=== PATIENT | female | born 1940 | race Caucasian/White ===

== ENCOUNTER 2017-03-15 07:15 | Inpatient (IN) | payer OTHER ==
--- NOTE | 2017-03-13 10:08 | GHP ---
[f rep st] PREOP HISTORY AND PHYSICAL DATE OF ADMISSION: 03/15/2017 ADMISSION DIAGNOSIS: Severe right hip degenerative arthritis. HISTORY OF PRESENT ILLNESS: The patient is a 76-year-old female who will be admitted for a right to simone hip arthroplasty. She underwent a left total hip arthroplasty [address] Steele[address] Lj r the past 4 years, she has had progressive pain of the right hip. In the past 6-9 months, things h ave gotten even worse. She has daily pain, as well as difficulties putting on shoes and socks. Act ivity makes her pain worse. She is using Celebrex with minimal improvement. Because of her progres sive pain, advanced arthritis, and recalcitrant response to conservative therapies, the patient has elected to proceed with a right total hip arthroplasty. PAST MEDICAL HISTORY: Pertinent for hypercholesterolemia, seasonal allergies. No history of hepati tis, DVT, PE, AL, or MRSA infections. CURRENT MEDICATIONS: Azelastine 0.15% nasal spray, Celebrex 200 mg daily, simvastatin 20 mg, and zo lpidem 10 mg. She also takes CoQ10, calcium, fish oil, glucosamine, and multivitamin. ALLERGIES: She has no known drug allergies. SOCIAL HISTORY: The patient is . She is retired. FAMILY HISTORY: Pertinent for coronary artery disease. PHYSICAL EXAMINATION: GENERAL: She is a healthy-appearing 76-year-old female. VITALS: Height 5 feet 4 inches tall, weight 129 pounds, BMI 22.1. HEENT: Head is normocephalic, a traumatic. Eyes are PERRLA. Conjunctivae and sclerae are clear. Mouth: She has good oral hygiene , without any loose teeth. LUNGS: Clear. HEART: Regular rate and rhythm, without murmurs, gallop s, or rubs. EXTREMITIES: Pertinent findings are limited to the patient's right hip. She has full hip extension, 110 degrees of flexion, 30 degrees of external rotation, 0 degrees of internal rotati on, and 20 degrees of abduction. DIAGNOSTIC IMAGING: Recent x-rays taken of the patient's right hip shows advanced degenerative arth ritis with [id number] findings. She has peripheral osteophyte formation and increased subchondral sclerosis. IMPRESSION: On admission: 1. Severe right hip degenerative arthritis. 2. History of left total hip arthroplasty with a good result. 3. Treated hypercholesterolemia. PLAN: The plan will be for the patient to undergo a right total hip arthroplasty with Dr. Steele at the [facility] on March 15, 2017. The patient has failed conservative treatment with activity modification, anti-inflammatory medications, and physical therapy. The surgery has been d escribed to the patient, including the risks, complications, expectations, and recovery time. She u nderstands the risk of dislocation, leg length inequality, infection, sciatic nerve injury, and the possibility of future need for future revision surgery. All her questions have been answered, and s he consents to surgery here in the office today. /[id number]/MODL
[~2017-03-15 07:15] MED LIST: POVIDONE-IODINE 20 ML in SODIUM CL IRRIG SOLUTION 500 ML IRR ONE; ROPIVACAINE 0.2% 80 MG, EPINEPHrine 0.2 MG, KETOROLAC TROMETHAMINE 30 MG in BAG 0 ML IU ONE; TRANEXAMIC ACID 1,180 MG in NS 100 ML IV ONE
[2017-03-15] MEDS ORDERED: ceFAZolin 1 GM/5 ML SYR ONE (09:21)
--- NOTE | 2017-03-15 10:06 | PDANEPAE ---
ANE History of Present Illness R AMADO ANE Past Medical History Past Medical History: hypercholesterolemia - Cardiovascular History Hx Hypertension: No Hx Arrhythmias: No Hx Chest Pain: No Hx Coronary Artery / Peripheral Vascular Disease: No Hx CHF / Valvular Disease: No Hx Palpitations: No - Pulmonary History Hx COPD: No Hx Asthma/Reactive Airway Disease: No Hx Recent Upper Respiratory Infection: No Hx Oxygen in Use at Home: No Hx Sleep Apnea: No - Neurologic History Hx Cerebrovascular Accident: No Hx Seizures: No Hx Dementia: No - Endocrine History Hx Diabetes: No - Renal History Hx Renal Disorders: No - Liver History Hx Hepatic Disorders: No - Neurological & Psychiatric Hx Hx Neurological and Psychiatric Disorders: No - Cancer History Hx Cancer: No - Congenital Disorder History Hx Congenital Disorders: No - GI History Hx Gastrointestinal Disorders: No - Other Health History Other Health History: wears glasses - Chronic Pain History Chronic Pain: Yes (arthritis to neck and shoulders) - Surgical History Prior Surgeries: c-sections x2 1958 and 1970. laminectomy for ruptured disc 1993. 2011 sinus surgery for chronic inflammation. 2013 left amado with [place] ANE Review of Systems - Exercise capacity METS (RN): 4 METS ANE Patient History - Allergies Allergies/Adverse Reactions: No Known Allergies Allergy (Verified 02/10/17 15:24) - Home Medications Home Medications: Fluticasone Nasal [Flonase Nasal [place] (RX)] 1 sprays NASAL DAILY PRN 12/21/12 [ Last Taken 01/15/13 22:00] Zolpidem Tartrate [Ambien 10 mg] 3 mg PO HS PRN 12/21/12 [Last Taken 01/07/13] celeCOXIB [Celebrex (RX)] 200 mg PO DAILY PRN 12/21/12 [Last Taken 01/14/13] Simvastatin [Zocor 20 mg (RX)] 30 mg PO HS 12/26/12 [Last Taken 01/15/13 21:30] Acetaminophen [Tylenol 325mg (*)] 325 mg PO DAILY PRN 02/07/17 [Last Taken Unknown] C/E/Zn/Cu/OM3/DHA/EPA/LUT/ZEAX [Preservision Areds 2 Softgel] 1 each PO BID [Last Taken Unknown] Herbals/Supplements -Info Only 1 ea PO DAILY 02/07/17 [Last Taken Unknown] Multivitamins [Multivitamin (*)] 1 each PO DAILY 02/07/17 [Last Taken Unknown] - NPO status NPO Since - Liquids (Date): 03/15/17 NPO Since - Liquids (Time): 07:30 - Anes Hx Anes Hx: no prior problems - Smoking Hx Smoking Status: Former smoker - Family Anes Hx Family Anes Hx: none Family Hx Anesthesia Complications: mother- had back surgery at 91 yo- took her months to snap out of it and really wasn't the same afterward ANE Labs/Vital Signs - Vital Signs Height: 162.56 cm Weight: 58.967 kg ANE Physical Exam - Airway Neck exam: FROM Mallampati Score: Class 1 Mouth exam: normal dental/mouth exam - Pulmonary Pulmonary: no respiratory distress - Cardiovascular Cardiovascular: regular rate and rhythym - ASA Status ASA Status: II ANE Anesthesia Plan Anesthesia Plan: MAC, spinal
[2017-03-15] MEDS ORDERED: PROPOFOL/EMULSION 500 MG/50 ML BOTTLE IV ONE (10:29)
[2017-03-15] MEDS ORDERED: LIDOCAINE 2% 5 ML SDV ONE (10:29)
--- NOTE | 2017-03-15 10:41 | PDHPUP ---
History & Physical Update H&P update statement: This history and physical update is based on an assessment of the patient which was completed after admission or registration (within 24 hours), but prior to the surgery/procedure. H&P update: H&P reviewed & patient examined, no change in patient's condition since H&P completed
[2017-03-15] MEDS ORDERED: LIDOCAINE 1% 2 ML INJ ONE (10:45)
[2017-03-15] MEDS ORDERED: DEXAMETHASONE 4 MG/ML VIAL IVP ONE (11:00)
[2017-03-15] MEDS ORDERED: FAMOTIDINE 20 MG TAB PO ONE (11:00)
[2017-03-15] MEDS ORDERED: ceFAZolin 2 GM/DEXTROSE 100 ML IV ONE (11:00)
[2017-03-15] MEDS ORDERED: ACETAMINOPHEN 325 MG TAB PO ONE (11:00)
[2017-03-15] MEDS ORDERED: MIDAZOLAM 2 MG/2 ML VIAL IVP ONE (11:02)
[2017-03-15] MEDS ORDERED: LIDOCAINE 1% 2 ML INJ ID PRN (11:11)
[2017-03-15] MEDS ORDERED: LR 1,000 ML IV ONE (11:11)
[2017-03-15] MEDS ORDERED: PHENYLEPHRINE HCL 100 MCG/ML SYR ONE (12:06)
--- NOTE | 2017-03-15 12:10 | POSTANESTH ---
Post Anesthetic Evaluation Cardiovascular Status: Normal, Stable, Similar to Pre-Op Cond Respiratory Status: Normal, Stable, Similar to Pre-op Cond. Level of Consciousness/Mental Status: Can Participate in Eval, Mildly Sleepy, Arousable Pain Control: Adequate, Prn Tx Ordered Nausea/Vomiting Control: Adequate, Prn Tx Ordered Complications Possibly Related to Anesthesia: None Noted
[2017-03-15] MEDS ORDERED: fentaNYL 100 MCG/2 ML INJ ONE (12:33)
--- NOTE | 2017-03-15 13:04 | POSTOPPROG ---
Post Op Note Date of Operation: 03/15/17 Surgeon: Shiv Steele Ball Thread Machine Tender: Kaur Anesthesiologist: Jael Anesthesia: IV Sedation, Spinal Post-op Diagnosis: R hip arthritis Procedure: R AMADO Inf/Abcess present in the surg proc area at time of surgery?: No EBL: [id number]
[2017-03-15] MEDS ORDERED: FLUTICASONE NASAL 120 SPRAYS/16 GM MDI EACHNARE PRN (13:09)
[2017-03-15] MEDS ORDERED: ZOLPIDEM TARTRATE PO PRN (13:09)
[2017-03-15] MEDS ORDERED: KETOROLAC 30 MG/1 ML SDV IVP PRN (13:10)
[2017-03-15] MEDS ORDERED: POLYETHYLENE GLYCOL 3350 17 GM PKT PO PRN (13:10)
[2017-03-15] MEDS ORDERED: PROMETHAZINE HCL 25 MG SUPPR PR PRN (13:10)
[2017-03-15] MEDS ORDERED: ONDANSETRON DISINTEGRATING 4 MG TAB PO PRN (13:10)
[2017-03-15] MEDS ORDERED: NS 500 ML IV PRN (13:10)
[2017-03-15] MEDS ORDERED: oxyCODONE IR 5 MG TAB PO PRN (13:10)
[2017-03-15] MEDS ORDERED: METOCLOPRAMIDE 10 MG/2 ML VIAL IVP PRN (13:10)
[2017-03-15] MEDS ORDERED: diphenhydrAMINE 25 MG CAP PO PRN (13:10)
[2017-03-15] MEDS ORDERED: LACTULOSE 20 GM/30 ML UDCUP PO PRN (13:10)
[2017-03-15] MEDS ORDERED: CYCLOBENZAPRINE 10 MG TAB PO PRN (13:10)
[2017-03-15] MEDS ORDERED: ONDANSETRON 4 MG/2 ML VIAL IVP PRN ×2 (13:10→13:20)
[2017-03-15] MEDS ORDERED: traMADol 50 MG TAB PO PRN (13:10)
[2017-03-15] MEDS ORDERED: PROMETHAZINE HCL 25 MG/ML INJ IVP PRN ×2 (13:10→13:20)
[2017-03-15] MEDS ORDERED: BISACODYL 10 MG SUPP PR PRN (13:10)
[2017-03-15] MEDS ORDERED: PHARMACY PAIN CONSULT 1 EA MISC PRN (13:10)
[2017-03-15] MEDS ORDERED: DIPHENOXYLATE/ATROPINE LOMOTIL 1 TAB PO PRN (13:10)
[2017-03-15] MEDS ORDERED: MAGNESIUM HYDROXIDE 30 ML UDCUP PO PRN (13:10)
[2017-03-15] MEDS ORDERED: fentaNYL 100 MCG/2 ML INJ IVP PRN (13:20)
[2017-03-15] MEDS ORDERED: OXYCODONE/APAP 5/325 TAB PO PRN (13:20)
[2017-03-15] MEDS ORDERED: NALOXONE HCL 0.4 MG/ML INJ IVP PRN (13:20)
[2017-03-15] MEDS ORDERED: HYDROmorphONE/DILAUDID 1 MG/ML SYR IVP PRN (13:20)
[2017-03-15] MEDS ORDERED: ACETAMINOPHEN 500 MG TAB PO PRN (13:20)
[2017-03-15] MEDS ORDERED: HYDROCODONE/APAP 5/325 TAB PO PRN (13:20)
[2017-03-15] MEDS ORDERED: MEPERIDINE 25 MG/ML SYR ONE ×2 (13:22→13:56)
[2017-03-15] MEDS: MEPERIDINE 25 MG/ML SYR IVP PRN ×3 (13:23→13:57)
[2017-03-15] MEDS ORDERED: LR 1,000 ML IV SCH (13:30)
--- NOTE | 2017-03-15 13:31 | POSTOPPROG ---
Post Op Note Date of Operation: 03/15/17 Surgeon: Shiv Steele Dry Cleaning Attendant: Giovanni Duran /Raheem Duvall Anesthesiologist: Felix Elder Post-op Diagnosis: right hip arthritis Procedure: right total hip arthroplasty Inf/Abcess present in the surg proc area at time of surgery?: No EBL: [id number]
--- NOTE | 2017-03-15 14:35 | GOP ---
[f rep st] OPERATIVE REPORT DATE OF OPERATION: 03/15/2017 SURGEON: Shiv Steele MD CERTIFIED LEGAL SECRETARY SPECIALIST: 1. Feliz Duran P.A.-C. 2. Raheem Duvall C.F.A. ANESTHESIA: Combination of Marcaine, spinal, and IV sedation. ANESTHESIOLOGIST: Felix Elder M.D. PREOPERATIVE DIAGNOSIS: Right hip degenerative arthritis. POSTOPERATIVE DIAGNOSIS: Right hip degenerative arthritis. PROCEDURE PERFORMED: Right total hip arthroplasty, ceramic femoral head on highly cross-linked poly ethylene cup liner. FINDINGS: ESTIMATED BLOOD LOSS: About 300 mL. The sponge and needle count were correct on 2 occasions. I used a Jina Tritanium hemispherical cluster hole acetabular shell with an outside diameter of 5 2 mm. The liner is a Jina X3 10-degree lipped highly cross-linked polyethylene liner with an ins kamran diameter of 32 mm. The femoral component is a Press-Fit Jina standard offset Secur-Fit Max s tem in a size 9. The femoral head is a [place] Biolox Delta ceramic head with a -2.5 mm neck length and a 32 mm outside diameter. Giovanni Duran and Raheem Duvall acted as surgical assistants. Their assistance was a [facility]. DESCRIPTION OF PROCEDURE: The patient was given 2 g of IV Ancef preoperatively within 60 minutes of surgery. She also received IV tranexamic acid at a dose of 20 mg/kg. She was placed on the operat ing room table and given spinal anesthesia with Marcaine by Dr. Elder. She was then placed supin e and given IV sedation. A Todd catheter was not used. She wore a LOLI stocking and SCD on the non operative leg. She was rolled to the left lateral decubitus position. The position was secured wit h the pegboard table attachment. An axillary roll was used, and all pressure points were carefully padded. I was careful to lock her pelvis in a rigid vertical position. Her perineum was isolated w ith plastic adhesive drapes. The right hip and right lower extremity were prepped with ChloraPrep. They were draped free using sterile sheets, stockinette, and Ioban plastic drape. The [employer] Organization time-out was performed to verify the correct patient identity and the correct surgical side and site. The [place] time-out was also performed. I made a 4 inch straight oblique posterolateral hip skin incision. Subcutaneous tissues were sharpl y divided and hemostasis was obtained using electrocautery. The fascia kailey was identified and spli t along the axis of its fibers. I then curved posteriorly and proximally, and split the fascia of t he gluteus demarcus and bluntly split the muscle fibers in line with their orientation. The [place] self-retaining retractor was inserted. Her sciatic nerve was located, partially exposed, and prote cted throughout the procedure. The external rotators and the posterior hip capsule were divided as separate layers at the base of the femoral neck, tagged, and reflected posteriorly. A smooth 8-inch Steinmann pin was inserted vertically into the ilium superior to the acetabulum. An 8-inch drill b it was inserted vertically into the greater trochanter and parallel to the first pin. The distance between the 2 was measured for leg length reference. Her femoral head was dislocated posteriorly. Severe degenerative changes were present on the femoral head. The femoral neck was osteotomized at the appropriate level and inclination. I was careful to preserve all the posterior capsule and most of the anterior capsule. The remnant of her damaged labrum was excised. I prepared the femur first. This allowed me to chute puller the amount of natural femoral neck anteversion . This, in turn, allowed me to later determine the correct amount of cup anteversion. She had appr oximately 10-12 degrees of natural femoral neck anteversion. The canal was opened laterally with a box chisel. I reamed and broached sequentially up to a size 9. I used a size 9 broach as a trial s tem. I was careful to lateralize adequately. Appropriate retractors were inserted to expose her acetabulum. The acetabulum was reamed sequential ly up to 51 mm. I selected a 52 mm [place] Tritanium cluster hole hemispherical shell. This was ta pped securely into place in the proper degree of inclination anteversion. I used her transverse gustavo tabular ligament and other acetabular bony landmarks to help me properly orient the cup. I inserted 30 mm and 25 mm supplemental fixation screws. I also inserted a screw in metal dome hole plug. Sm all posterior and inferior osteophytes were removed with an osteotome and rongeur. I performed a series of trial reductions to determine length and stability. I concluded that the si ze 9 stem with a -2.5 mm neck length, a 32 mm head and a 10 degree lipped liner gave me the proper c ombination of appropriate length and good anterior and posterior stability. She was a few millimete rs short preoperatively and I was intentionally lengthening her a few millimeters. The 10-degree li pped [place] X3 highly cross-linked polyethylene liner was inserted and tapped securely into place. I dialed the 10-degree overhang so that it was directly posterior. I chose the Jina Secur-Fit M ax stem in a size 9 with standard offset. This was inserted and was a very tight fit. I did one fi nal trial reduction and confirmed that the -2.5 mm neck length with a 32 mm head was the proper comb ination. I selected the [place] Biolox Delta ceramic head with an outside diameter of 32 mm and a n monserrat length of -2.5 mm. The head was tapped securely onto the clean trunnion. The acetabulum was ir rigated, cleaned, and the hip was reduced one final time. She had excellent anterior and posterior stability and appropriate length. 40 mL of a joint anesthetic cocktail was injected into the capsul e, the deep musculature, and the subcutaneous tissues along the skin edges. The joint was thoroughly irrigated one final time with a dilute Betadine solution. Her sciatic nerv e was reinspected and looked unharmed. The external rotators and the posterior hip capsule were rep aired in separate layers with #2 FiberWire sutures through drill holes in the greater trochanter. T his provided a strong posterior capsular and external rotator repair. The fascia kailey was closed fi rst with a couple of interrupted [id number] #2 FiberWire sutures followed by a running #2 barbe d Ethicon Stratafix PDO suture. The subcutaneous tissues were closed with a running 0 barbed Ethico n Stratafix Monoderm suture. The skin was closed with a running 3-0 barbed Ethicon Stratafix Monode rm subcuticular suture. The skin edges were reapproximated and sealed with Dermabond glue. The wou nd was covered with a strip of Telfa and everything was held in place with a piece of clear plastic Tegaderm. A long-leg LOLI stocking and SCD were applied to her right lower extremity. She wore a st ocking and SCD on the opposite leg during the procedure. An abduction pillow was placed between her knees. She was awakened from anesthesia and rolled to the supine position on her [facility]. She was taken to the PACU in satisfactory condition. COMPLICATIONS: There were no recognized intraoperative complications. /[id number]/MODL
[2017-03-15] MEDS ORDERED: ZOLPIDEM TARTRATE 5 MG TAB PO PRN (14:45)
[2017-03-15] MEDS: ACETAMINOPHEN 325 MG TAB PO SCH (17:50)
[2017-03-15] MEDS ORDERED: SODIUM CL NASAL 45 ML BTL NS PRN (18:41)
[2017-03-15] MEDS: ceFAZolin 2 GM/DEXTROSE 100 ML IV SCH (20:44)
[2017-03-15] MEDS: PRESERVISION AREDS2 FORMULA EYE VIT 1 EACH PO SCH (20:44)
[2017-03-15] MEDS: SENNOSIDES/DOCUSATE SODIUM TAB PO SCH (20:46)
[2017-03-15] MEDS: TRANEXAMIC ACID 650 MG TAB PO SCH (20:47)
[2017-03-15] MEDS ORDERED: SIMVASTATIN PO SCH (21:00)
[2017-03-15] MEDS ORDERED: ATORVASTATIN CALCIUM 10 MG TAB PO SCH (21:00)
[2017-03-15] MEDS: ASPIRIN 325 MG TAB PO SCH (21:48)
[2017-03-15] MEDS: FAMOTIDINE 20 MG TAB PO SCH (21:48)
[2017-03-15] MEDS: AZELASTINE HCL NASAL SCH (21:49)
[2017-03-16] MEDS: ACETAMINOPHEN 325 MG TAB PO SCH ×2 (04:08→06:05)
[2017-03-16] MEDS: TRANEXAMIC ACID 650 MG TAB PO SCH (04:09)
[2017-03-16] MEDS: ceFAZolin 2 GM/DEXTROSE 100 ML IV SCH (04:09)
[2017-03-16 04:15] VITALS: RESP 16; O2SAT 93
[2017-03-16 05:22] LABS: HEMATOCRIT 31.4 % (38.0-47.0); HEMOGLOBIN 10.4 g/dL (12.6-16.3)
[2017-03-16 07:24] VITALS: BP 115/56; PULSE 65; TEMP 98.3
--- NOTE | 2017-03-16 07:43 | SOAPPROG ---
SOAP Progress Note Assessment/Plan: Assessment: Afebrile. Awake and alert. She has been up and walking in the room. Her dressing is dry. Sciatic nerve intact. H&H is good. Films look excellent. Plan: Physical therapy today. Discharge later today. 03/16/17 07:42 Objective: Vital Signs Temp Pulse Resp BP Pulse Ox 36.8 C 65 16 115/56 L 93 03/16/17 07:17 03/16/17 07:17 03/16/17 07:17 03/16/17 07:17 03/16/17 07:17 Laboratory Results 03/16/17 04:53 03/15/17 03/16/17 03/17/17 05:59 05:59 05:59 Intake Total 3855 Output Total 2300 Balance 1555 ICD10 Worksheet Patient Problems: Problems Problem Status Onset Osteoarthritis of right hip Acute Osteoarthritis of hip Active
[2017-03-16] MEDS: FAMOTIDINE 20 MG TAB PO SCH (08:59)
[2017-03-16] MEDS: SENNOSIDES/DOCUSATE SODIUM TAB PO SCH (08:59)
[2017-03-16] MEDS: PRESERVISION AREDS2 FORMULA EYE VIT 1 EACH PO SCH (09:00)
[2017-03-16] MEDS: ASPIRIN 325 MG TAB PO SCH (09:00)
[2017-03-16] MEDS: AZELASTINE HCL NASAL SCH (09:05)
--- NOTE | 2017-03-16 10:38 | GDS ---
[f rep st] DISCHARGE SUMMARY ADMISSION DIAGNOSIS: Right hip severe degenerative arthritis. DISCHARGE DIAGNOSIS: Right hip severe degenerative arthritis. OPERATION PERFORMED: 03/15/2017: Right total hip arthroplasty. POSTOPERATIVE COMPLICATIONS: None. CONDITION ON DISCHARGE: Improved. DESCRIPTION OF HOSPITAL COURSE: The patient was admitted to the hospital on the morning of surgery. Her admission CBC was normal. The same day, under a combination of Marcaine, spinal, and IV sedatio n, she underwent a right total hip arthroplasty. Postoperatively, she was treated with multimodal DV T prophylaxis, including aspirin. She was seen by Physical Therapy, and made good progress with ambu lation and stairs. On the first postoperative day, her hemoglobin and hematocrit were 10.4 and 31.4. She did not require any transfused blood. She was seen by Physical Therapy and made excellent progr ess. By the time of discharge, she was afebrile and was independent in walking. DISPOSITION: The patient is discharged to her home. Continue aspirin 325 mg p.o. daily for 21 days. She has a prescription for oxycodone and tramadol for pain control. Use LOLI stockings for 1 week. U se an abduction pillow in bed for 3 weeks. I will see her back in the office on 04/06/2017. If there are any problems, she is to call me at the office. /[id number]/MODL
== END 2017-03-16 10:39 | disposition home or self-care (01) | DRG 470 ==
LOC: F3E 10:27 → F3N 11:25
PROVIDERS: ADMIT Orthopaedic Surgery; ATTEND Orthopaedic Surgery
PROC: 0SR904Z Replacement of Right Hip Joint with Ceramic on Polyethylene Synthetic Substitute, Open Approach (ICD-10-PCS; principal; 2017-03-15 12:15)
DX: M16.11 Unilateral primary osteoarthritis, right hip (principal); Z96.642 Presence of left artificial hip joint; E78.00 Pure hypercholesterolemia, unspecified
CPT/HCPCS: 97161-GP; 97165-GO; C1713; G8978-GP-CI; G8979-GP-CI; G8980-GP-CI; G8987-GO-CI; G8988-GO-CI; G8989-GO-CI; J0171; J0690; J1100; J1885; J2250; J2370; J2704; J2795; J3010

== ENCOUNTER → 2017-06-15 | Outpatient (CLI) | payer OTHER | LOC: FIMAGING 10:32 | PROVIDERS: ATTEND Family Medicine | DX: Z12.31 Encounter for screening mammogram for malignant neoplasm of breast (principal) | CPT/HCPCS: G0202 ==

== ENCOUNTER → 2018-04-30 | Outpatient (CLI) | payer OTHER | LOC: FIMAGING 10:01 | PROVIDERS: ATTEND Family Medicine | DX: M81.0 Age-related osteoporosis without current pathological fracture (principal) ==

== ENCOUNTER → 2018-11-09 | Outpatient (CLI) | payer OTHER | LOC: FIMAGING 14:28 | PROVIDERS: ATTEND Family Medicine | DX: Z12.31 Encounter for screening mammogram for malignant neoplasm of breast (principal) ==